=== PATIENT | female | born 1990 | race Two or more races ===

== ENCOUNTER → 2019-11-25 | Outpatient (CLI) | payer OTHER ==
--- NOTE | 2019-12-22 07:02 | REP ---
LEFT FOOT SERIES CLINICAL: Medial left foot pain and mass. TECHNIQUE: AP, lateral, and bilateral oblique of the left foot. FINDINGS: Osseous structures, joint spaces, and surrounding soft tissues are normal. No acute fracture or dislocation. No healed injury. No arthritic changes. No obvious mass lesion. IMPRESSION: Normal radiographic evaluation of the left foot. MTDD
== END ==
LOC: M LRY 09:38
PROVIDERS: ATTEND Nurse Practitioner Family
DX: M79.672 Pain in left foot (principal)

== ENCOUNTER → 2020-07-23 | Outpatient (CLI) | payer OTHER | LOC: M LAB 14:30 | PROVIDERS: ATTEND Registered Nurse | DX: O36.80X0 Pregnancy with inconclusive fetal viability, not applicable or unspecified (principal); Z3A.08 8 weeks gestation of pregnancy ==

== ENCOUNTER 2020-07-26 14:34 | Day surgery (SDC) | payer OTHER ==
[~2020-07-26] VITALS: Ht 160 cm; Wt 86.0 kg
[2020-07-26 15:25] LABS: BASO % 0.3 % (0.0-1.0); EOS # 0.1 10^3/uL (0.0-0.5); EOS % 1.8 % (0.0-3.0); HEMATOCRIT 40.2 % (36.0-47.0); HEMOGLOBIN 13.1 g/dl (12.0-15.5); LYMPH # 2.1 10^3/uL (1.5-5.0); MEAN CORPUSCULAR HEMOGLOBIN 28.4 pg (27.0-33.0); MEAN CORPUSCULAR HGB CONC 32.6 g/dl (32.0-36.5); MONO # 0.4 10^3/uL (0.0-0.8); MONO % 5.6 % (2.0-8.0); NEUTROPHILS # 4.7 10^3/uL (1.5-8.5); NEUTROPHILS % 64.2 % (36.0-66.0); PLATELET COUNT, AUTOMATED 369 10^3/uL (150-450); RED BLOOD COUNT 4.62 10^6/uL (4.00-5.40); WHITE BLOOD COUNT 7.3 10^3/uL (4.0-10.0)
--- NOTE | 2020-07-26 15:37 | REP ---
INDICATION: vaginal bleeding. COMPARISON: None. TECHNIQUE: Real-time sonographic evaluation of pelvis performed utilizing transabdominal technique. FINDINGS: Urinary bladder is not well distended. Uterus measures 14.6 x 6.0 x 5.7 cm. Endometrium is heterogeneous in echotexture and measures 14 mm in AP diameter. There is no intrauterine gestational sac or fluid collection. The ovaries appear normal in size and echotexture, right ovary measuring 2.9 x 2.5 x 2.0 cm and left ovary 2.1 x 2.1 x 2.4 cm. There is no adnexal mass or free fluid. IMPRESSION: Enlarged uterus with heterogeneous endometrium measuring 14 mm in thickness. No intrauterine gestational sac or fluid collection. No adnexal mass or free fluid. <Electronically signed by Nathen Ennis > 07/26/20 1531
[2020-07-26 16:10] LABS: HCG, SERUM QUANTITATIVE 10610 MIU/ML
[2020-07-26] MEDS ORDERED: NS 1,000 ML IV ONE (16:40)
[2020-07-26 17:27] LABS: BASO % 0.3 % (0.0-1.0); EOS # 0.1 10^3/uL (0.0-0.5); EOS % 1.4 % (0.0-3.0); HEMATOCRIT 33.8 % (36.0-47.0); HEMOGLOBIN 11.2 g/dl (12.0-15.5); LYMPH # 2.7 10^3/uL (1.5-5.0); LYMPH % 33.8 % (24.0-44.0); MEAN CORPUSCULAR HGB CONC 33.1 g/dl (32.0-36.5); MEAN CORPUSCULAR VOLUME 87.6 fl (80.0-96.0); MONO # 0.5 10^3/uL (0.0-0.8); MONO % 5.9 % (2.0-8.0); NEUTROPHILS # 4.6 10^3/uL (1.5-8.5); NEUTROPHILS % 58.2 % (36.0-66.0); PLATELET COUNT, AUTOMATED 342 10^3/uL (150-450); RED BLOOD COUNT 3.86 10^6/uL (4.00-5.40)
[2020-07-26 18:12] LABS: ALBUMIN 3.3 GM/DL (3.2-5.2); ALT/SGPT 20 U/L (12-78); BILIRUBIN,DIRECT < 0.1 MG/DL (0.0-0.2); BILIRUBIN,TOTAL 0.2 MG/DL (0.2-1.0); BLOOD UREA NITROGEN 8 MG/DL (7-18); CALCIUM LEVEL 9.2 MG/DL (8.5-10.1); CARBON DIOXIDE LEVEL 26 MEQ/L (21-32); CHLORIDE LEVEL 105 MEQ/L (98-107); CREATININE FOR GFR 0.68 MG/DL (0.55-1.30); GLOMERULAR FILTRATION RATE > 60.0 (>60); GLUCOSE, FASTING 146 MG/DL (70-100); POTASSIUM SERUM 3.9 MEQ/L (3.5-5.1); SODIUM LEVEL 136 MEQ/L (136-145); TOTAL PROTEIN 7.4 GM/DL (6.4-8.2)
[2020-07-26] MEDS: MORPHINE 4 MG/ML 1ML VIAL/SYRINGE (J2270) IV ONE ×2 (18:23→18:53)
[2020-07-26] MEDS ORDERED: NS 1,000 ML IV SCH (18:25)
[2020-07-26] MEDS ORDERED: KETOROLAC 30 MG/ML 1ML VIAL IV ONE (18:35)
--- NOTE | 2020-07-26 19:03 | ED PDOC ---
Provider Note Item Value Date Time White Blood Count 7.3 10^3/uL 07/26/20 1453 Red Blood Count 4.62 10^6/uL 07/26/20 1453 Hemoglobin 13.1 g/dl 07/26/20 1453 Hematocrit 40.2 % 07/26/20 1453 Mean Corpuscular Volume 87.0 fl 07/26/20 1453 Mean Corpuscular Hemoglobin 28.4 pg 07/26/20 1453 Mean Corpuscular Hemoglobin Concent 32.6 g/dl 07/26/20 1453 Red Cell Distribution Width 13.1 % 07/26/20 1453 Platelet Count 369 10^3/uL 07/26/20 1453 Immature Granulocyte % (Auto) 0.1 % 07/26/20 1453 Neutrophils (%) (Auto) 64.2 % 07/26/20 1453 Lymphocytes (%) (Auto) 28.0 % 07/26/20 1453 Monocytes (%) (Auto) 5.6 % 07/26/20 1453 Eosinophils (%) (Auto) 1.8 % 07/26/20 1453 Basophils (%) (Auto) 0.3 % 07/26/20 1453 Neutrophils # (Auto) 4.7 10^3/uL 07/26/20 1453 Lymphocytes # (Auto) 2.1 10^3/uL 07/26/20 1453 Monocytes # (Auto) 0.4 10^3/uL 07/26/20 1453 Eosinophils # (Auto) 0.1 10^3/uL 07/26/20 1453 Basophils # (Auto) 0.0 10^3/uL 07/26/20 1453 Red Blood Count 3.86 10^6/uL L 07/26/20 1656 Hemoglobin 11.2 g/dl L 07/26/20 1656 Hematocrit 33.8 % L 07/26/20 1656 Mean Corpuscular Volume 87.6 fl 07/26/20 1656 Mean Corpuscular Hemoglobin 29.0 pg 07/26/20 1656 Mean Corpuscular Hemoglobin Concent 33.1 g/dl 07/26/20 1656 Red Cell Distribution Width 13.2 % 07/26/20 1656 Platelet Count 342 10^3/uL 07/26/20 1656 Immature Granulocyte % (Auto) 0.4 % 07/26/20 1656 Neutrophils (%) (Auto) 58.2 % 07/26/20 1656 Lymphocytes (%) (Auto) 33.8 % 07/26/20 1656 Eosinophils (%) (Auto) 1.4 % 07/26/20 1656 Monocytes (%) (Auto) 5.9 % 07/26/20 1656 Basophils (%) (Auto) 0.3 % 07/26/20 1656 Neutrophils # (Auto) 4.6 10^3/uL 07/26/20 1656 Lymphocytes # (Auto) 2.7 10^3/uL 07/26/20 1656 Monocytes # (Auto) 0.5 10^3/uL 07/26/20 1656 called to ed re spontaneous incomplete WITH increased bleeding hypotension with postoral shift drop in hg/hct dizzy .PAST HISTORY A 2 . LMP 05/17/2020 EDC BY EARLY US 02/21/21 HAD US VIABILITY GS/YS/FP NO SADDLE MAKER REPEAT US GS INCONCLUSIVE VIABILITY. PAST HISTORY 2010 FEMALE 39 WEEKS 7 LBS 8 OZ, 2018 FEMALE TERM 7 LBS , 2018 6 WEEKS SPONTANEOUS AB, 2018 SPONTANOUS AB 6 WEEKS 2002 7 WEEKS D AND C . NO MEDICAL ISSUES PHYSICAL EXAMINATION STABLE BUT ISSUES WITH HYPOTENSION VERTIGO DROP IN H/H . FOCUSED PELVIC OS OPEN TISSUE AT OS UTERUS 8 WEEKS . PLAN SUCTION D AND C WITH OVERRIDE OF PROTOCOL FOR NPO STATUS, COVED TESTING NAME: RADHA KNOTT DATE OF : 1990 AGE: 30 SEX: F REPORT #: [id number] ROOM: M ED TECHNOLOGIST: SRI DOCTOR: SANA NGUYEN PA-C. Ordered for Date&Time: 07/26/20 1455 cc: [~ rep ct ivnm] Service Date&Time: 07/26/20 1523 EXAMINATION REQUESTED: 1ST TRIMESTER US REASON FOR PATIENT VISIT: VAGINAL BLEEDING REASON FOR EXAM/COMMENT: vaginal bleeding INDICATION: vaginal bleeding. COMPARISON: None. TECHNIQUE: Real-time sonographic evaluation of pelvis performed utilizing transabdominal technique. FINDINGS: Urinary bladder is not well distended. Uterus measures 14.6 x 6.0 x 5.7 cm. Endometrium is heterogeneous in echotexture and measures 14 mm in AP diameter. There is no intrauterine gestational sac or fluid collection. The ovaries appear normal in size and echotexture, right ovary measuring 2.9 x 2.5 x 2.0 cm and left ovary 2.1 x 2.1 x 2.4 cm. There is no adnexal mass or free fluid. IMPRESSION: Enlarged uterus with heterogeneous endometrium measuring 14 mm in thickness. No intrauterine gestational sac or fluid collection. No adnexal mass or free fluid. <Electronically signed by Nathen Ennis > 07/26/20 1533 DD: Nathen Ennis MD, MD 07/26/20 1531 DT: MARIELA 07/26/20 1533 DS: PROSPER 07/26/20 1531 07/26/20 1531 [~ rep ct labl] Tera Silva MD July 26, 2020 19:03
[2020-07-26] MEDS ORDERED: LIDOCAINE 2% 100MG/5ML SDV (FOR ANES.) As Ordered ONE (19:05)
[2020-07-26] MEDS ORDERED: MIDAZOLAM INJ 2MG/2ML VIAL (J2250 PER 1MG) As Ordered ONE (19:05)
[2020-07-26] MEDS ORDERED: fentaNYL 100 MCG/2 ML INJECTION (J3010) As Ordered ONE (19:05)
[2020-07-26] MEDS ORDERED: dexameTHASONE 4 MG/ML 1ML VIAL (J1100 PER 1MG) As Ordered ONE (19:06)
[2020-07-26] MEDS ORDERED: ROCURONIUM BROMIDE 50 MG/5 ML VIAL As Ordered ONE (19:06)
[2020-07-26] MEDS ORDERED: propofoL 200 MG/20 ML VIAL As Ordered ONE (19:06)
[2020-07-26] MEDS ORDERED: ONDANSETRON 4MG/2ML VIAL As Ordered ONE (19:06)
[2020-07-26 20:05] LABS: RSV AMPLIFICATION NEGATIVE (NEGATIVE)
[2020-07-26] MEDS ORDERED: ACETAMINOPHEN 650 MG SUPP As Ordered ONE (20:31)
[2020-07-26] MEDS ORDERED: KETOROLAC 60MG 2ML VIAL As Ordered ONE (20:52)
[2020-07-26] MEDS ORDERED: ACETAMINOPHEN 1000MG 100ML IV BTL (OFIRMEV) (J0131 PER 10MG) As Ordered ONE (20:52)
[2020-07-26] MEDS ORDERED: SUCCINYLCHOLINE 100 MG/5 ML SYRINGE (J0330) As Ordered ONE (20:55)
[2020-07-26] MEDS ORDERED: OXYTOCIN INJ 10 UNITS/ML VIAL (J2590) As Ordered ONE (20:58)
[2020-07-26] MEDS ORDERED: KETOROLAC 30 MG/ML 1ML VIAL IV PRN (21:30)
[2020-07-26] MEDS ORDERED: fentaNYL 100 MCG/2 ML INJECTION (J3010) IV PRN (21:30)
[2020-07-26] MEDS ORDERED: LR 1,000 ML IV SCH (21:30)
[2020-07-26 22:10] VITALS: BP 125/78
--- NOTE | 2020-07-27 10:28 | RO ---
OPERATIVE NOTE DATE OF OPERATION: 07/26/2020 PREOPERATIVE DIAGNOSES: 1. Missed . 2. Anemia. 3. Hypotension. 4. Tachycardia. POSTOPERATIVE DIAGNOSES: 1. Retained products of conception. 2. Tachycardia. 3. Hypovolemia. OPERATION PROPOSED: Suction curettage. OPERATION PERFORMED: Suction curettage. SURGEON: Tera Silva MD. [employer] OPERATOR: ANESTHESIA: General. ESTIMATED BLOOD LOSS: 100 mL. DESCRIPTION OF PROCEDURE: After adequate time out, prepped and draped in the lithotomy position. Bladder was drained for 25 mL of clear urine. Weighted speculum in the vagina. Single forceps applied to the anterior lip of the cervix. Cervix was already dilated to a #10 Hegar. and placental tissue was retrieved and sent to pathology under separate cover. The uterus was sounded to a depth of 10 cm. Curved suction curette with a #10 was applied. Curettage to the cavity was smooth. Uterus placed in anatomical position, well contracted under Pitocin. Patient is Rh positive B. Does not require RhoGAM. Patient was sent to recovery in good condition. Patient will require cardiac evaluation for tachycardia and possibly a beta-sanchez.
== END 2020-07-26 22:10 | disposition home or self-care (01) ==
LOC: M ED 14:34 → M SDC 14:35 → EDBEDREQSVC 18:38 → M SDC 22:10
PROVIDERS: ATTEND Obstetrics & Gynecology
DX: O02.1 Missed abortion (principal); D64.9 Anemia, unspecified; I95.9 Hypotension, unspecified; R00.0 Tachycardia, unspecified
CPT/HCPCS: 59820; 76801; 80048; 80076; 84702; 85025; 86850; 86900; 86901; 87631; 88305; 99284; J0131; J0330; J1100; J1885; J2250; J2405; J2590; J3010

== ENCOUNTER → 2020-09-15 | Outpatient (CLI) | payer OTHER ==
--- NOTE | 2020-09-15 11:56 | REP ---
INDICATION: PAIN COMPARISON: None. TECHNIQUE: Three views left shoulder. FINDINGS: There is no evidence of acute fracture, dislocation, or intrinsic bone disease.The joint spaces are not significantly narrowed radiographically. There is mild spurring of the distal clavicle superiorly. IMPRESSION: No fracture or dislocation. Mild spurring of the distal clavicle superiorly. <Electronically signed by Nathen Ennis > 09/15/20 0057
== END ==
LOC: M WUC 10:48
PROVIDERS: ATTEND Physician Assistant
DX: M25.512 Pain in left shoulder (principal)

== ENCOUNTER → 2020-11-07 | Outpatient (CLI) | payer OTHER ==
--- NOTE | 2020-11-08 07:22 | PFTRPT ---
Site: [facility], [address] [place] [address], [id number] ID: [id number] Name: RADHA KNOTT Visit Date: 11/07/2020 Second ID: [id number] Referring Doctor: Ryan Shetty D.O. Reviewing Doctor: Jono Castro MD Accounts Payable Administrator: Arabella YEBOAH RRT Age: 30 : 1990 Sex: Female Race: <Unspecified> Height: 62.00 Inches Weight: 195.00 Lbs BSA: 1.89 Order IDs: [id number] Requested Test(s): <RESP-PFT.PFT B/A> Diagnosis: DYSPNEA test meet the ATS standards for acceptability and repeatability. Pt was given four puffs of albuterol for post bronchodilator. Review Status: Not Reviewed Pre-Bronch Post-Bronch Pred Actual %Pred Actual %Chng SPIROMETRY FVC (L) 3.52 2.40 68 2.39 FEV1 (L) 2.96 2.09 70 2.15 3 FEV1/FVC (%) 84 87 103 90 3 FEF 25% (L/sec) 5.42 5.33 98 4.78 -10 FEF 50% (L/sec) 4.42 2.87 65 3.74 29 FEF 75% (L/sec) 1.84 1.12 60 1.44 27 FEF 25-75% (L/sec) 3.26 2.47 75 3.14 26 FEF Max (L/sec) 6.71 5.61 83 5.75 2 FIVC (L) 2.37 2.28 -3 FIF 50% (L/sec) 4.15 3.52 84 4.15 18 FIF Max (L/sec) 3.70 4.19 13 MVV (L/min) 103 90 87 Expiratory Time (sec) 7.00 6.44 -7 Back Extrap Vol (L) 0.09 0.09 7 Time To FEFmax (sec) 0.080 0.114 42 LUNG VOLUMES SVC (L) 3.41 2.36 69 IC (L) 2.16 2.01 93 ERV (L) 1.25 0.35 27 TGV (L) 2.59 1.45 56 RV (Pleth) (L) 1.34 1.10 82 TLC (Pleth) (L) 4.75 3.47 72 RV/TLC (Pleth) (%) 28 32 113 DIFFUSION DLCOunc (ml/min/mmHg) 23.83 16.90 70 DL/VA (ml/min/mmHg/L) 5.02 5.67 113 VA (L) 4.75 2.98 62 BHT (sec) 10.09 IVC (L) 2.13 TLC (SB) (L) 3.13 AIRWAYS RESISTANCE Raw (cmH2O/L/s) 1.86 1.55 83 Gaw (L/s/cmH2O) 1.03 0.64 62 sRaw (cmH2O*s) 4.76 2.36 49 sGaw (1/cmH2O*s) 0.20 0.42 211
== END ==
LOC: M CARPUL 08:54
PROVIDERS: ATTEND Emergency Medicine
DX: R06.00 Dyspnea, unspecified (principal)

== ENCOUNTER → 2020-11-23 | Outpatient (CLI) | payer OTHER ==
[~2020-11-23] MED LIST: METHACHOLINE KIT (J7674) INH ONE
--- NOTE | 2020-11-23 11:38 | PFTRPT ---
Height: 62.00 Inches Weight: 194.00 Lbs BSA: 1.89 Diagnosis: DYSPNEA DATE: 11/23/2020 ORDERED BY: Ryan Shetty DO QUALITY: Study of excellent technical quality. PROCEDURE: Under protocol, methacholine was administered. A dose of 2.5 mg or 13.875 CDUs, a 24% decline in the FEV1 was noted. PC of 1.16 is significant. Flow rates did return to baseline post bronchodilator administration. IMPRESSION: Positive methacholine challenge study. MTDD
== END ==
LOC: M CARPUL 10:53
PROVIDERS: ATTEND Emergency Medicine
DX: R06.00 Dyspnea, unspecified (principal)
CPT/HCPCS: 94070; J7674